=== PATIENT | female | born 1970 | race Caucasian/White ===

== ENCOUNTER 2017-10-08 18:21 | Emergency (ER) | payer MEDICARE ==
[~2017-10-08] VITALS: Ht 167.6 cm; Wt 95.5 kg
[2017-10-08 18:25] VITALS: Ht 167.6 cm; Wt 95.5 kg
[2017-10-08] MEDS ORDERED: TORADOL10 MG PO (18:27)
[2017-10-08] MEDS ORDERED: BAYER ASPIRIN325 MG PO (18:27)
[2017-10-08] MEDS ORDERED: NORVASC5 MG PO (18:27)
[2017-10-08] MEDS ORDERED: DURICEF500 MG PO (18:27)
[2017-10-08] MEDS ORDERED: MEPERIDINE HCL50 MG PO (18:28)
[2017-10-08 19:09] LABS: BASOPHILS 0.3 % (0-2); EOSINOPHILS 1.6 % (0-7); HEMATOCRIT 41.2 % (36.0-48.0); HEMOGLOBIN 13.7 g/dL (12-16); IMMATURE GRANULOCYTES 0.8 % (0-5); LYMPHOCYTES 38.4 % (15-50); MCH 28.1 pg (26.0-34.0); MCHC 33.3 g/dL (31.0-37.0); MCV 84.6 fL (80.0-100.0); MEAN PLATELET VOLUME 9.7 fL (7.4-10.4); MONOCYTES 8.3 % (2-11); NEUTROPHILS 50.6 % (40-80); PLATELET COUNT 250 10x3/uL (130-400); RBC 4.87 10x6/uL (4.00-5.40); RDW 13.2 % (11.5-14.5); WBC 11.6 10x3/uL (4.8-10.8)
[2017-10-08 19:27] LABS: APTT 25.4 SECONDS (22.8-39.4); INR 0.88 (0.85-1.17); PROTIME 11.6 SECONDS (11.6-15.0)
[2017-10-08 19:28] LABS: D-DIMER-QUANTITATIVE 0.65 ug/mLFEU (0.20-0.54)
[2017-10-08 19:30] LABS: ALBUMIN 3.4 g/dL (3.4-5.0); ANION GAP 7.9 mmol/L (8-16); BILIRUBIN - TOTAL 0.78 mg/dL (0.2-1.3); CALCIUM 8.8 mg/dL (8.5-10.1); CARBON DIOXIDE 31.5 mmol/L (21.0-32.0); CREATININE - SERUM 0.9 mg/dL (0.6-1.3); POTASSIUM - SERUM 3.4 mmol/L (3.5-5.1); PROTEIN - SERUM 7.4 g/dL (6.4-8.2)
[2017-10-08 20:50] VITALS: BP 144/79
== END 2017-10-08 20:40 | disposition home or self-care (01) ==
LOC: D.ER 18:21
PROVIDERS: Emergency Medicine
DX: R06.00 Dyspnea, unspecified (principal); I10 Essential (primary) hypertension